=== PATIENT | male | born 1960 | race Caucasian/White ===

== ENCOUNTER 2016-08-03 10:08 | Observation (INO) | payer BC ==
[~2016-08-03 10:08] MED LIST: CYCLOBENZAPRINE10 M1 PO; NO MEDS
[2016-08-03 12:55] LABS: INR 0.9 INR (0.9-1.1); PROTHROMBIN TIME 10.6 SECONDS (9.0-13.6)
[2016-08-03 12:58] LABS: BASO % 0.4 % (0-2); EOS % 3.4 % (0-7); EOSINOPHIL ABSOLUTE COUNT 0.3 tho/cmm (0.0-0.7); HCT-HEMATOCRIT 53.9 % (36.0-53.5); HGB-HEMOGLOBIN 18.6 gm/dl (13.5-17.0); IMMATURE GRANULOCYTES ABSOLUTE 0.03 tho/cmm (0-0.03); IMMATURE GRANULOCYTES PERCENT 0.3 % (0-0.3); LYMPH % 24.3 % (20-45); LYMPH ABSOLUTE COUNT 2.4 tho/cmm (0.8-4.5); MCH (MEAN CORPUSCULAR HGB) 32.6 pg (28.0-32.0); MCHC MEAN CORPUSCULAR HGB CONC 34.5 % (32.0-36.0); MCV (MEAN CELL VOLUME) 94.4 fl (82.0-96.0); MONO % 7.2 % (0-12); MONOCYTE ABSOLUTE COUNT 0.7 tho/cmm (0.0-1.2); NEUTROPHIL ABSOLUTE COUNT 6.3 tho/cmm (1.6-8.0); NEUTROPHIL-AUTOMATED 6.3 tho/cmm (1.6-8.0); NEUTROPHILS % 64.4 % (40-80); PLATELET COUNT 184 tho/cmm (150-450); RED BLOOD COUNT 5.71 mil/cmm (4.40-5.70); RED CELL DISTRIBUTION WIDTH 12.7 % (12.4-16.4); WHITE BLOOD COUNT 9.8 tho/cmm (4.0-10.0)
[2016-08-03 13:05] LABS: ANION GAP 14 mmol/L (0-20); BLOOD UREA NITROGEN 20 mg/dl (6-24); CALCIUM 9.3 mg/dl (8.5-10.5); CARBON DIOXIDE-VENOUS 24 mmol/L (22-32); CHLORIDE 107 mmol/l (96-110); CREATININE 1.21 mg/dl (0.60-1.30); GLUCOSE 98 mg/dL (70-110); POTASSIUM 4.5 mmol/L (3.7-5.1); SODIUM 140 mmol/L (135-145); eGFR VALUE FOR BLACK 78 mL/Min
[2016-08-04 03:52] LABS: URINE BILIRUBIN NEGATIVE (NEG); URINE BLOOD NEGATIVE (NEG); URINE GLUCOSE (UA) NEGATIVE (NEG); URINE KETONE NEGATIVE (NEG); URINE LEUKOCYTE ESTERASE NEGATIVE (NEG); URINE NITRITE NEGATIVE (NEG); URINE PH 6.5 (5.0-8.0); URINE PROTEIN NEGATIVE (NEG); URINE SPECIFIC GRAVITY 1.015 (1.003-1.030)
[2016-08-04 04:11] LABS: URINE APPEARANCE CLEAR; URINE COLOR YELLOW
[2016-08-04 05:32] LABS: TSH-THYROID STIMULATING HORM. 1.55 uIU/ml (0.40-3.80)
[2016-08-05 06:12] LABS: HGB-HEMOGLOBIN 17.9 gm/dl (13.5-17.0); PLATELET COUNT 161 tho/cmm (150-450)
[2016-08-06] MEDS ORDERED: KEPPRA500 M3 PO (12:00)
== END 2016-08-06 12:45 ==
LOC: EDMED 10:08 → EMR2 15:09 → 5EA 17:51
PROVIDERS: Emergency Medicine; ADMIT Hospitalist
DX: R47.01 Aphasia (principal); R94.01 Abnormal electroencephalogram [EEG]; G93.40 Encephalopathy, unspecified; Z91.048 Other nonmedicinal substance allergy status; Z87.442 Personal history of urinary calculi; Z98.890 Other specified postprocedural states
CPT/HCPCS: A9577; C8929; G0378; G8978-GP-CH; G8979-GP-CH; G8980-GP-CH; G8987-GO-CL; G8988-GO-CL; G8989-GO-CL; J1650